=== PATIENT | female | born 1935 | race Caucasian/White ===

== ENCOUNTER 2017-05-12 07:11 | Inpatient (IN) | payer OTHER ==
[~2017-05-12] VITALS: Ht 167.6 cm; Wt 71.7 kg
--- NOTE | 2017-05-12 07:13 | NUR ---
PT [facility] BLS. TAKEN TO BED 10
--- NOTE | 2017-05-12 07:15 | NUR ---
[facility] and to r/o stroke. Facility staff states Pt had right sided facial drooping when they called 911. Upon arival to ED, Pt is alert to name only. She has Hx of dementia. neuro assessment is clear. Eyes perrla, hand new autos delivery driver strong. Symmetrical facial symmetry, bilateral equal arm strength. VSS. ER MD aware. Continue to monitor.
[2017-05-12 07:18] VITALS: BP 115/60
--- NOTE | 2017-05-12 07:19 | NUR ---
Dr. Phelps evaluating patient.
[2017-05-12 08:19] LABS: APPEARANCE,URINE HAZY (CLEAR); BILIRUBIN,URINE NEGATIVE (NEGATIVE); BLOOD, URINE TRACE-I (NEGATIVE); COLOR,URINE YELLOW (YELLOW); LEUKOCYTE ESTERASE ,URINE NEGATIVE (NEGATIVE); PH,URINE 5.5 (5.0-9.0); UGLUCOSE NEGATIVE (NEGATIVE)
[2017-05-12 08:19] LABS: BASOPHILS # (AUTO) 0.4 K/uL (0.00-0.22); BASOPHILS % (AUTO) 4.6 % (0.0-2.0); EOSINOPHILS # (AUTO) 0.1 K/uL (0-0.4); EOSINOPHILS % (AUTO) 0.7 % (0.0-4.0); HEMATOCRIT 49.2 % (36-48); HEMOGLOBIN 16.2 g/dL (12.0-16.0); LYMPHOCYTES # (AUTO) 1.4 K/uL (2.5-16.5); LYMPHOCYTES % (AUTO) 15.1 % (20.5-51.1); MEAN CORPUSCULAR HEMOGLOBIN 27 pg (27-31); MEAN CORPUSCULAR HGB CONC 33 g/dL (33-37); MEAN CORPUSCULAR VOLUME 82 fL (80-94); MONOCYTES # (AUTO) 0.5 K/uL (0.8-1.0); MONOCYTES % (AUTO) 5.6 % (1.7-9.3); NEUTROPHILS # (AUTO) 7.1 K/uL (1.8-7.7); PLATELET COUNT (AUTO) 169 K/uL (140-450); RED BLOOD CELL COUNT(AUTO) 5.98 MIL/uL (4.20-5.40); RED CELL DISTRIBUTION WIDTH 13.6 % (11.6-13.7); WHITE BLOOD COUNT (AUTO) 9.5 K/uL (4.8-10.8)
[2017-05-12 08:27] LABS: NITRITE, URINE POSITIVE (NEGATIVE); RBC,URINE NONE SEEN /HPF (0-5); WBC,URINE 0-5 (RARE) /HPF (0-5)
[2017-05-12 08:36] LABS: ALBUMIN 3.2 g/dL (3.4-5.0); ANION GAP 9.3 (8-16); ASPARTATE AMINOTRANSFERASE 51 U/L (15-37); CARBON DIOXIDE 38.7 mmol/L (21-32); CHLORIDE 82 mmol/L (98-107); CREATININE 1.1 mg/dL (0.6-1.3); GLUCOSE 158 mg/dL (74-106); SODIUM SERUM 128 mmol/L (136-145); TOTAL BILIRUBIN 0.8 mg/dL (0.0-1.0); UREA NITROGEN, BLOOD 15 mg/dL (7-18)
[2017-05-12] MEDS ORDERED: POTASSIUM CHL 10 MEQ/D5-1/2NS 1,000 ML IV ONE (08:50)
[2017-05-12] MEDS ORDERED: LACTULOSE 20 GM/30 ML UDC PO ONE (08:50)
[2017-05-12] MEDS ORDERED: POTASSIUM CHLORIDE 10 MEQ TABER PO ONE (08:50)
[2017-05-12] MEDS ORDERED: ACETAMINOPHEN 325 MG TAB PO PRN (09:20)
[2017-05-12] MEDS ORDERED: HYDROcodone/APAP 7.5/325 MG 1 TAB PO PRN (09:20)
[2017-05-12] MEDS ORDERED: ONDANSETRON 4 MG/2 ML VIAL IVP PRN (09:20)
[2017-05-12] MEDS ORDERED: POTASSIUM CHLORIDE 40 MEQ, LIDOCAINE 1% 25 MG in NACL 0.9% 250 ML IV SCH (09:45)
[2017-05-12 10:00] VITALS: BP 123/74
--- NOTE | 2017-05-12 10:00 | NUR ---
PATIENT WAS TRANSFERRED FROM ER. REPORT WAS GIVEN AT BEDSIDE. PATIENT IS AWAKE, ALERT. RESPIRATION EVEN, UNLABOR ON ROOM AIR. SKIN DRY AND WARM. IV PATENT AND INTACT. DENIED PAIN, SOB, N/V AT THIS TIME. VS WAS TAKEN, MRSA WAS SWABBED. PLAN OF CARE WAS DISCUSSED WITH PATIENT. BED AT LOW POSITION, CALL LIGHT WITHIN REACH. SIDE RAILS UP. BED ALARM IS ACTIVE
[2017-05-12] MEDS ORDERED: METO25TA14 PO (10:06)
[2017-05-12] MEDS ORDERED: ACET-1083 PO (10:06)
[2017-05-12] MEDS ORDERED: IBUP-1842 PO (10:06)
[2017-05-12] MEDS ORDERED: ZOLP10TA1 PO (10:06)
[2017-05-12] MEDS ORDERED: LACT10SO4 PO (10:06)
[2017-05-12] MEDS ORDERED: VITB12 PO (10:06)
[2017-05-12] MEDS ORDERED: DONE5TAB6 PO (10:06)
[2017-05-12] MEDS: NACL 0.9% 1,000 ML IV SCH (10:27)
[2017-05-12] MEDS ORDERED: LEVOFLOXACIN 500 MG/D5W PREMIX 100 ML IV SCH (10:30)
[2017-05-12 10:33] LABS: PROTHROMBIN TIME 11.3 secs (10.8-13.4)
[2017-05-12 10:39] LABS: CHOL/HDL RATIO 3.7 (1-4.5); FREE T4 (FREE THYROXINE) 1.35 ng/dL (0.76-1.46); MAGNESIUM 2.1 mg/dL (1.8-2.4); PHOSPHORUS 2.9 mg/dL (2.5-4.9); THYROID STIMULATING HORMONE 2.6 uIU/mL (0.34-3.74)
[2017-05-12 12:00] VITALS: BP 155/68
--- NOTE | 2017-05-12 12:40 | NUR ---
PATIENT AWAKE, ALERT, EATING LUNCH. RESPIRATION EVEN, UNLABOR ON ROOM AIR. NO DISTRESS NOTED AT THIS TIME. CALL LIGHT WITHIN REACH
[2017-05-12 13:35] LABS: ANION GAP 10.6 (8-16); CHLORIDE 84 mmol/L (98-107); GLUCOSE 172 mg/dL (74-106); SODIUM SERUM 127 mmol/L (136-145); UREA NITROGEN, BLOOD 14 mg/dL (7-18)
[2017-05-12 13:38] LABS: POTASSIUM 2.6 mmol/L (3.5-5.1)
--- NOTE | 2017-05-12 14:27 | NUR ---
PATIENT IS SLEEPING COMFORTABLY, EASILY AROUSABLE. RESPIRATION EVEN, UNLABOR ON ROOM AIR. NO DISTRESS NOTED AT THIS TIME. CALL LIGHT WITHIN REACH
[2017-05-12 15:50] VITALS: BP 125/65
--- NOTE | 2017-05-12 15:59 | NUR ---
PATIENT IS SLEEPING COMFORTABLY, EASILY AROUSABLE BY TOUCH. RESPIRATION EVEN, UNLABOR ON ROOM AIR. VS IS STABLE. NO DISTRESS NOTED AT THIS TIME. CALL LIGHT WITHIN REACH
--- NOTE | 2017-05-12 18:20 | NUR ---
PATIENT IS SLEEPING COMFORTABLY. RESPIRATION EVEN, UNLABOR ON ROOM AIR. IV PATENT AND INTACT. NO DISTRESS NOTED AT THIS TIME. CALL LIGHT WITHIN REACH
[2017-05-12] MEDS ORDERED: POTASSIUM CHLORIDE 40 MEQ, LIDOCAINE 1% 25 MG in NACL 0.9% 250 ML IV ONE (18:45)
[2017-05-12] MEDS ORDERED: POTASSIUM CHLORIDE 10 MEQ TABER PO SCH (19:00)
--- NOTE | 2017-05-12 19:27 | NUR ---
ENDORSEMENT GIVEN TO THE FACILITIES MAINTENANCE ENGINEER NURSE. PATIENT IS STABLE AT THIS TIME
--- NOTE | 2017-05-12 19:28 | NUR ---
RECIEVED REPORT FROM DAY NURSE. PT IN STABLE CONDITION. NO S/S OF DISTRESS NOTED. PT AAOX2 ON RA. IV TO R HAND 22G, PATENT AND INTACT, INFUSING WELL. SKIN IS WARM AND DRY TO TOUCH, INTACT. RR EVEN/UNLABORED. BOWEL SOUNDS PRESENT. INITIAL ASSESSMENT COMPLETED, PLAN OF CARE DISCUSSED WITH PT, REINFORCEMENT NEEDED, ALL SAFETY PRECAUTIONS MET, BOARD UPDATED,CALL LIGHT WITHIN REACH, WILL CONTINUE TO MONITOR.
[2017-05-12 20:00] VITALS: BP 114/66
[2017-05-12] MEDS: DOCUSATE SODIUM 100 MG GELCAP PO SCH (20:19)
[2017-05-12] MEDS: DONEPEZIL 10 MG TAB PO SCH (20:20)
[2017-05-13] VITALS: BP 116/68
--- NOTE | 2017-05-13 00:08 | NUR ---
SPOKE WITH PHARMACY BECAUSE THERE IS A PENDING ORDER FOR K-RIDER BUT PHARMACY NOT VERIFYING. PHARMACY STATED THEY WERE WAITING TO HERE FROM LICENSED GUIDE PHARMACIST BECAUSE ORDER IS FOR K-RIDER WITH LIDOCAINE WHICH ONLY PHARMACY CAN MIX. WILL NOTIFY DR. LUCAS
--- NOTE | 2017-05-13 00:16 | NUR ---
K-RIDER INFUSING WELL, PT TOLERATING WELL, NO S/S OF DISTRESS NOTED.WILL CONTINUE TO MONITOR.
[2017-05-13] MEDS ORDERED: KCL 20 MEQ/WATER INJ PREMIX 200 ML IV SCH (01:00)
[2017-05-13 04:00] VITALS: BP 118/68
[2017-05-13] MEDS: NACL 0.9% 1,000 ML IV SCH ×2 (05:17→17:37)
--- NOTE | 2017-05-13 06:54 | NUR ---
PATIENT HAS BEEN SCREENED AND CATEGORIZED MODERATE NUTRITION RISK. PATIENT WILL BE SEEN WITHIN 3-5 DAYS OF ADMISSION. 05/15/17-05/17/17 MICHAEL WINN MS, RDN
--- NOTE | 2017-05-13 07:10 | NUR ---
ENDORSEMENT RECEIVED FROM DIAMOND MOUNTER NURSE. PATIENT IS AWAKE, ALERT. RESPIRATION EVEN, UNLABOR ON ROOM AIR. SKIN DRY AND WARM. IV PATENT AND INTACT. DENIED PAIN, N/V AT THIS TIME. PLAN OF CARE WAS DISCUSSED WITH PATIENT. BED AT LOW POSITION, SIDE RAILS UP, FALL RISK PRECAUTION ENSURED. CALL LIGHT WITHIN REACH
--- NOTE | 2017-05-13 07:23 | NUR ---
REPORT GIVEN TO DAY SHIFT NURSE FOR CONTINUITY OF CARE, PT IN STABLE CONDITION
[2017-05-13 07:25] LABS: BASOPHILS # (AUTO) 0.2 K/uL (0.00-0.22); BASOPHILS % (AUTO) 1.9 % (0.0-2.0); EOSINOPHILS # (AUTO) 0.1 K/uL (0-0.4); EOSINOPHILS % (AUTO) 0.8 % (0.0-4.0); HEMOGLOBIN 14.2 g/dL (12.0-16.0); LYMPHOCYTES # (AUTO) 1.6 K/uL (2.5-16.5); LYMPHOCYTES % (AUTO) 16.2 % (20.5-51.1); MEAN CORPUSCULAR HEMOGLOBIN 27 pg (27-31); MEAN CORPUSCULAR HGB CONC 33 g/dL (33-37); MEAN CORPUSCULAR VOLUME 82 fL (80-94); MONOCYTES # (AUTO) 1.1 K/uL (0.8-1.0); MONOCYTES % (AUTO) 10.7 % (1.7-9.3); NEUTROPHILS % (AUTO) 70.4 % (42.2-75.2); PLATELET COUNT (AUTO) 245 K/uL (140-450); RED BLOOD CELL COUNT(AUTO) 5.24 MIL/uL (4.20-5.40); RED CELL DISTRIBUTION WIDTH 14.1 % (11.6-13.7)
[2017-05-13 07:38] LABS: ANION GAP 8.5 (8-16); CARBON DIOXIDE 32.6 mmol/L (21-32); CHLORIDE 91 mmol/L (98-107); CREATININE 0.8 mg/dL (0.6-1.3); GLUCOSE 127 mg/dL (74-106); POTASSIUM 3.1 mmol/L (3.5-5.1); SODIUM SERUM 129 mmol/L (136-145); UREA NITROGEN, BLOOD 12 mg/dL (7-18)
[2017-05-13 07:44] LABS: MAGNESIUM 2.1 mg/dL (1.8-2.4); PHOSPHORUS 2.1 mg/dL (2.5-4.9)
[2017-05-13 08:00] VITALS: BP 121/79
[2017-05-13] MEDS: LACTOBACILLUS RHAMNOSUS GG 1 EACH CAP PO SCH (08:51)
[2017-05-13] MEDS: CYANOCOBALAMIN 100 MCG TAB PO SCH (08:51)
[2017-05-13] MEDS: LACTULOSE 20 GM/30 ML UDC PO SCH (08:51)
[2017-05-13] MEDS: METOPROLOL 25 MG TAB PO SCH (08:52)
[2017-05-13] MEDS: DOCUSATE SODIUM 100 MG GELCAP PO SCH ×2 (08:52→21:18)
--- NOTE | 2017-05-13 09:53 | NUR ---
PATIENT WAS CLEANED UP AND REPOSITIONED TO RIGHT LATERAL. NO DISTRESS NOTED AT THIS TIME.
[2017-05-13] MEDS ORDERED: INSULIN LISPRO SLIDING SCALE 100 UNITS/ML VIAL SUBQ PRN (10:30)
[2017-05-13] MEDS ORDERED: DEXTROSE 50% 50 ML SYR IVP PRN (10:30)
--- NOTE | 2017-05-13 10:30 | NUR ---
PATIENT IS SLEEPING COMFORTABLY, EASILY AROUSABLE BY NAME. RESPIRATION EVEN, UNLABOR ON ROOM AIR. NO DISTRESS NOTED AT THIS TIME. MED WAS GIVEN PER ORDER
[2017-05-13] MEDS: LEVOFLOXACIN 250 MG/D5 PREMIX 50 ML IV SCH (10:32)
[2017-05-13] MEDS ORDERED: POTASSIUM CHLORIDE 10 MEQ TABER PO SCH (11:00)
[2017-05-13] MEDS ORDERED: POTASSIUM CHLORIDE 40 MEQ, LIDOCAINE 1% 25 MG in NACL 0.9% 250 ML IV SCH (11:00)
[2017-05-13] MEDS: BLOOD GLUCOSE MONITORING 1 DEV DEV FS SCH ×3 (11:17→21:22)
--- NOTE | 2017-05-13 11:42 | NUR ---
PATIENT IS SLEEPING COMFORTABLY. RESPIRATION EVEN, UNLABOR ON ROOM AIR. NO DISTRESS NOTED AT THIS TIME. US TECH IS AT BEDSIDE. MED WAS GIVEN PER ORDER.
[2017-05-13 12:00] VITALS: BP 105/56
--- NOTE | 2017-05-13 15:27 | NUR ---
PATIENT IS SLEEPING COMFORTABLY. RESPIRATION EVEN, UNLABOR ON ROOM AIR. NO DISTRESS NOTED AT THIS TIME. CALL LIGHT WITHIN REACH
[2017-05-13 16:00] VITALS: BP 123/64
[2017-05-13 16:48] LABS: ANION GAP 8.5 (8-16); CARBON DIOXIDE 33.5 mmol/L (21-32); CHLORIDE 92 mmol/L (98-107); CREATININE 0.8 mg/dL (0.6-1.3); GLUCOSE 109 mg/dL (74-106); SODIUM SERUM 130 mmol/L (136-145); UREA NITROGEN, BLOOD 11 mg/dL (7-18)
--- NOTE | 2017-05-13 18:13 | NUR ---
PATIENT IS AWAKE, ALERT, EATING DINNER. RESPIRATION EVEN, UNLABOR. TUBE FORMER OPERATOR WAS REMOVED. NO DISTRESS NOTED AT THIS TIME. IV PATENT AND INTACT. CALL LIGHT WITHIN REACH
--- NOTE | 2017-05-13 19:07 | NUR ---
ENDORSEMENT GIVEN TO THE PHOTOGRAMMETRY AIRPLANE PILOT NURSE. PATIENT IS STABLE AT THIS TIME
[2017-05-13] MEDS: DONEPEZIL 10 MG TAB PO SCH (21:18)
[2017-05-13] MEDS ORDERED: CHLORHEXADINE GLUC 2% CLOTH TP SCH (22:25)
[2017-05-13] MEDS ORDERED: MUPIROCIN 2% OINT 22 GM TUBE TP SCH (22:25)
[2017-05-14] VITALS: BP 126/68
[2017-05-14] MEDS: NACL 0.9% 1,000 ML IV SCH ×3 (00:05→11:51)
[2017-05-14 06:33] LABS: BASOPHILS # (AUTO) 0.1 K/uL (0.00-0.22); EOSINOPHILS # (AUTO) 0.1 K/uL (0-0.4); EOSINOPHILS % (AUTO) 0.7 % (0.0-4.0); HEMATOCRIT 39.6 % (36-48); HEMOGLOBIN 13.6 g/dL (12.0-16.0); LYMPHOCYTES # (AUTO) 2.1 K/uL (2.5-16.5); LYMPHOCYTES % (AUTO) 28.3 % (20.5-51.1); MEAN CORPUSCULAR HEMOGLOBIN 28 pg (27-31); MEAN CORPUSCULAR HGB CONC 34 g/dL (33-37); MEAN CORPUSCULAR VOLUME 82 fL (80-94); MONOCYTES % (AUTO) 14.2 % (1.7-9.3); NEUTROPHILS % (AUTO) 54.8 % (42.2-75.2); PLATELET COUNT (AUTO) 207 K/uL (140-450); RED BLOOD CELL COUNT(AUTO) 4.86 MIL/uL (4.20-5.40); RED CELL DISTRIBUTION WIDTH 14.1 % (11.6-13.7); WHITE BLOOD COUNT (AUTO) 7.3 K/uL (4.8-10.8)
[2017-05-14 06:38] LABS: ANION GAP 10.4 (8-16); CARBON DIOXIDE 29.2 mmol/L (21-32); CHLORIDE 96 mmol/L (98-107); CREATININE 0.8 mg/dL (0.6-1.3); GLUCOSE 104 mg/dL (74-106); POTASSIUM 3.6 mmol/L (3.5-5.1); SODIUM SERUM 132 mmol/L (136-145); UREA NITROGEN, BLOOD 9 mg/dL (7-18)
[2017-05-14] MEDS: BLOOD GLUCOSE MONITORING 1 DEV DEV FS SCH ×4 (06:38→20:56)
[2017-05-14 06:44] LABS: MAGNESIUM 1.9 mg/dL (1.8-2.4); PHOSPHORUS 2.2 mg/dL (2.5-4.9)
--- NOTE | 2017-05-14 07:22 | NUR ---
BEDSIDE REPORT GIVEN TO DAYSHIFT NURSE FOR CONTINUITY OF CARE, PT IN STABLE CONDITION. NO S/S OF DISTRESS NOTED.
--- NOTE | 2017-05-14 07:27 | NUR ---
REPORT RECEIVED FROM COMMERCIAL TRUCK DRIVER NURSE, BORIS, PT SLEEPING QUIETLY IN NAD, RESP EVEN UNLABORED, SKIN WARM DRY COLOR WNL, DENIES PAIN OR DISCOMFORT, AROUSES EASILY, , PLAN OF CARE REVIEWED, NO IMMEDIATE NEEDS IDENTIFIED, ALL SAFETY MEASURES IN PLACE, WILL CONTINUE TO MONITOR.
[2017-05-14 08:00] VITALS: BP 104/56
[2017-05-14] MEDS: LACTULOSE 20 GM/30 ML UDC PO SCH (08:20)
[2017-05-14] MEDS: DOCUSATE SODIUM 100 MG GELCAP PO SCH ×2 (08:21→20:56)
[2017-05-14] MEDS: METOPROLOL 25 MG TAB PO SCH (08:21)
[2017-05-14] MEDS: LACTOBACILLUS RHAMNOSUS GG 1 EACH CAP PO SCH (08:21)
[2017-05-14] MEDS: CYANOCOBALAMIN 100 MCG TAB PO SCH (08:26)
--- NOTE | 2017-05-14 08:30 | NUR ---
PT KARLA SCHEDULED MEDS, PT SITTING UP EATING BREAKFAST IN NAD.
[2017-05-14] MEDS: CHLORHEXADINE GLUC 2% CLOTH TP SCH (08:41)
[2017-05-14] MEDS: MUPIROCIN 2% OINT 22 GM TUBE TP SCH (08:41)
--- NOTE | 2017-05-14 10:28 | NUR ---
PHYSICAL THERAPY AT BEDSIDE
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
--- NOTE | 2017-05-14 11:35 | NUR ---
BEDSIDE GLUCOSE 126, NO INSULIN NEEDED PER SLIDING SCALE.
[2017-05-14] MEDS: LEVOFLOXACIN 250 MG/D5 PREMIX 50 ML IV SCH (11:50)
--- NOTE | 2017-05-14 13:51 | NUR ---
CLOTHING EXAMINER FROM [facility] AT BEDSIDE VISITING, WANTS TO SPEAK WITH TUTU WHITE CALLED TO BEDSIDE TO DISCUSS DISCHARGE PLAN.
--- NOTE | 2017-05-14 14:29 | NUR ---
ELIS FROM [facility] CALLED TO LET US KNOW THAT [place] [facility] READY TO TRANSFER TO SNF, ELIS STATES SHE DISCUSSED THE PLAN WITH BUNNY, DIRECTOR OF [facility] BO[facility] AND CARE WHERE PT CAME FROM. PHONE NUMBER FOR ELIS [phone], BUNNY [phone].
--- NOTE | 2017-05-14 14:36 | NUR ---
CM NOTE REVIEW DONE
--- NOTE | 2017-05-14 15:09 | NUR ---
NOTE PATIENT INFORMATION FAXED TO [facility] / FAX# [phone] Addendum: 05/14/17 at 1554 by Jan Smith RN PLACED ON WILL-CALL W/ [facility].
--- NOTE | 2017-05-14 15:31 | NUR ---
1430 MET WITH BROOKS FROM [facility] AND DISCUSSED DISCHARGE PLAN. 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 ASKED IF PT WAS ELIGIBLE FOR RETURN AND SHE STATED THAT SHE WOULD NEED TO ASK HER . INQUIRED IF IT WAS DUE TO PT MAYBE HAVING INCREASED CARE NEEDS AND SHE STATED THAT SHE WANTED ME TO SPEAK TO HER . SPOKE WITH BUNNY ON PHONE AND HE INDICATED THAT PT IS NOT PAYING THEIR EXPECTATIONS OF $2300 PER MONTH AND PAYS "NOT QUITE $2000" ASKED IF PT HAD ANY RELATIVES AND HE STATED THAT PT DOES HAVE A BROTHER IN [place]. ASKED HOW PT PAYS FOR [facility] AND HE STATED THAT THERE IS A BANK ACCOUNT SET UP AND HE GETS AN AUTOMATIC PAYMENT. INFORMED HIM THAT HE NEEDS TO LET CM KNOW WHETHER HE IS GOING TO TAKE PT BACK THE PLAN IS FOR PT TO GO TO SNF FOR PT THEN HOME AND THE SNF WILL NEED TO KNOW WHAT THE DISCHARGE PLAN IS. PER BUNNY THE PT HAS BEEN [place] [facility] [place]FORE AND THEY WOULD PREFER THAT SINCE IT IS CLOSE. PER BUNNY HE WILL ACCEPT THE PT BACK WHEN DISCHARGED AND IN THE MEAN TIME WILL DISCUSS THE FINANCES WITH THE FAMILY.
[2017-05-14 15:59] VITALS: BP 118/75
--- NOTE | 2017-05-14 16:14 | NUR ---
PT RESTING QUIETLY IN NAD, RESP EVEN UNLABORED, SKIN WARM DRY COLOR WNL, VITALS STABLE, DENIES ANY IMMEDIATE NEEDS, BED LOCKED IN LOW POSITION, SIDE RAILS UP, CALL KIRBY WITHIN REACH, IV INFUSING WELL, SITE WNL, WILL CONTINUE TO MONITOR.
--- NOTE | 2017-05-14 16:41 | NUR ---
BEDSIDE GLUCOSE 92, NO INSULIN NEEDED PER SLIDING SCALE.
--- NOTE | 2017-05-14 18:07 | NUR ---
PT ASSISTED TO SITTING POSITION, EATING DINNER NOW, RESP EVEN UNLABORED, SKIN WARM DRY COLOR WNL, WILL CONTINUE TO MONITOR.
--- NOTE | 2017-05-14 19:13 | NUR ---
REPORT GIVEN TO BOX OFFICE MANAGER NURSE, PT IN STABLE CONDITION.
--- NOTE | 2017-05-14 19:14 | NUR ---
RECEIVED REPORT FROM DAY SHIFT RN, PT IS A/CONSTANZA2, ON ROOM AIR. 22G IV ACCESS TO RIGHT HAND INFUSING NS@100ML/HR. PT USES BEDSIDE COMMODE WITH ASSISTANCE, PT SKIN IS INTACT. UPDATED BOARD. DISCUSSED PLAN OF CARE WITH PT. VITAL SIGNS WITHIN NORMAL LIMITS. PT IN STABLE CONDITION, NO SIGNS OF DISTRESS NOTED. BED IN LOWEST POSITION, CALL LIGHT WITHIN REACH. WILL CONTINUE TO MONITOR.
[2017-05-14] MEDS: DONEPEZIL 10 MG TAB PO SCH (20:56)
--- NOTE | 2017-05-14 21:00 | NUR ---
PT BLOOD SUGAR 97, NO INSULIN COVERAGE NEEDED. ADMINISTERED SCHEDULED MEDICATIONS, PT TOLERATED WELL. NO PROBLEMS SWALLOWING. PT IN STABLE CONDITION, NO SIGNS OF DISTRESS NOTED. BED IN LOWEST POSITION, CALL LIGHT WITHIN REACH. WILL CONTINUE TO MONITOR.
[2017-05-15] VITALS: BP 125/56
--- NOTE | 2017-05-15 | NUR ---
VITAL SIGNS WITHIN NORMAL LIMITS. PT IN STABLE CONDITION, NO SIGNS OF DISTRESS NOTED. BED IN LOWEST POSITION, CALL LIGHT WITHIN REACH. WILL CONTINUE TO MONITOR.
--- NOTE | 2017-05-15 02:51 | NUR ---
PT IN STABLE CONDITION, NO SIGNS OF DISTRESS NOTED. BED IN LOWEST POSITION, CALL LIGHT WITHIN REACH. WILL CONTINUE TO MONITOR.
--- NOTE | 2017-05-15 05:23 | NUR ---
PT IN STABLE CONDITION, NO SIGNS OF DISTRESS NOTED. BED IN LOWEST POSITION, CALL LIGHT WITHIN REACH. WILL CONTINUE TO MONITOR.
[2017-05-15] MEDS: BLOOD GLUCOSE MONITORING 1 DEV DEV FS SCH ×2 (06:42→12:13)
--- NOTE | 2017-05-15 07:10 | NUR ---
ENDORSED PT IN STABLE CONDITION TO DAY SHIFT NURSE FOR CONTINUITY OF CARE.
--- NOTE | 2017-05-15 07:11 | NUR ---
RECEIVED REPORT FROM FINANCIAL ASSISTANCE ADVISOR NURSE. PATIENT IS AAOX2, RESPIRATORY EFFORT EVEN AND UNLABORED. NO SIGNS AND SYMPTOMS OF ACUTE DISTRESS NOTED AT THIS TIME. HAS IV TO THE RIGHT HAND 22G, INFUSING NS AT 100ML/HR. SITE IS CLEAN, DRY, PATENT AND INTACT. DISCUSSED PLAN OF CARE WITH PATIENT AND SHE VERBALIZED UNDERSTANDING. BED IS IN LOWEST POSITION, SIDE RAILS UP X2, CALL LIGHT PLACED WITHIN REACH. WILL CONTINUE TO MONITOR.
[2017-05-15 07:15] LABS: ANION GAP 11.7 (8-16); CARBON DIOXIDE 26.9 mmol/L (21-32); CHLORIDE 99 mmol/L (98-107); CREATININE 0.8 mg/dL (0.6-1.3); GLUCOSE 104 mg/dL (74-106); POTASSIUM 3.6 mmol/L (3.5-5.1); SODIUM SERUM 134 mmol/L (136-145); UREA NITROGEN, BLOOD 7 mg/dL (7-18)
[2017-05-15 08:00] VITALS: BP 114/82
[2017-05-15] MEDS ORDERED: MEMANTINE 10 MG TAB PO SCH (09:00)
[2017-05-15] MEDS: LACTULOSE 20 GM/30 ML UDC PO SCH (09:35)
[2017-05-15] MEDS: DOCUSATE SODIUM 100 MG GELCAP PO SCH (09:35)
[2017-05-15] MEDS: LACTOBACILLUS RHAMNOSUS GG 1 EACH CAP PO SCH (09:36)
[2017-05-15] MEDS: CYANOCOBALAMIN 100 MCG TAB PO SCH (09:36)
[2017-05-15] MEDS: METOPROLOL 25 MG TAB PO SCH (09:36)
[2017-05-15] MEDS: MUPIROCIN 2% OINT 22 GM TUBE TP SCH (09:37)
[2017-05-15] MEDS: CHLORHEXADINE GLUC 2% CLOTH TP SCH (09:37)
[2017-05-15] MEDS: NACL 0.9% 1,000 ML IV SCH (09:40)
[2017-05-15] MEDS: LEVOFLOXACIN 250 MG/D5 PREMIX 50 ML IV SCH (11:00)
--- NOTE | 2017-05-15 12:35 | NUR ---
CALLED [facility]. [phone]. [facility] WILL BE AT 5:30P.[place] RN AWARE
[2017-05-15] MEDS ORDERED: METO50TE2 PO (12:54)
[2017-05-15] MEDS ORDERED: LEVO750T2 PO (12:57)
[2017-05-15] MEDS ORDERED: INUL1CTB PO (12:57)
--- NOTE | 2017-05-15 16:13 | NUR ---
LATE ENTRY. PER SIERRA AT [facility], PATIENT CAN GO RO ROOM 29A. UNDER DR. Sandra HERNANDEZ. MADINA MEAT SERVICE TEAM MEMBER NURSE AWARE.
--- NOTE | 2017-05-15 16:15 | NUR ---
LATE ENTRY. [facility] AWARE OF TRANSFER TO [facility] ROOM [address]A UNDER DR. Reva HERNANDEZ AND OF PICKUP TIME BY AT 5:30P.M.
--- NOTE | 2017-05-15 18:20 | NUR ---
DISCHARGE ORDERS ARE IN PLACE. PATIENT TO BE TRANSFERRED TO [facility] BED [facility]. FAMILY MADE AWARE ALREADY. TRANSPORTATION HERE FOR PATIENT. REMINDED PATIENT THAT SHE GOING TO ANOTHER FACILITY. IV HAS BEEN REMOVED EARLIER DUE TO INFILTRATION. PATIENT CHANGED INTO HER OWN GOWN. NO SIGNS AND SYMPTOMS OF ACUTE DISTRESS NOTED AT THIS TIME.
== END 2017-05-15 18:20 | DRG 682 ==
LOC: MED 07:11 → MTU 09:20
PROVIDERS: ADMIT Student in an Organized Health Care Education/Training Program; ATTEND Student in an Organized Health Care Education/Training Program
DX: N17.0 Acute kidney failure with tubular necrosis (principal); G93.41 Metabolic encephalopathy; E44.0 Moderate protein-calorie malnutrition; E87.8 Other disorders of electrolyte and fluid balance, not elsewhere classified; N39.0 Urinary tract infection, site not specified; E87.1 Hypo-osmolality and hyponatremia; E87.6 Hypokalemia; I10 Essential (primary) hypertension; E78.5 Hyperlipidemia, unspecified; K74.60 Unspecified cirrhosis of liver; K72.90 Hepatic failure, unspecified without coma; E66.9 Obesity, unspecified; F02.80 Dementia in other diseases classified elsewhere, unspecified severity, without behavioral disturbance, psychotic disturbance, mood disturbance, and anxiety; I25.10 Atherosclerotic heart disease of native coronary artery without angina pectoris; M85.80 Other specified disorders of bone density and structure, unspecified site; Z66 Do not resuscitate; K21.9 Gastro-esophageal reflux disease without esophagitis; M81.0 Age-related osteoporosis without current pathological fracture; G30.9 Alzheimer's disease, unspecified; Z68.25 Body mass index [BMI] 25.0-25.9, adult
CPT/HCPCS: 36415; 70450; 71045; 80048; 80053; 81001; 82140; 82150; 82948; 83036; 83690; 83735; 83880; 84100; 84439; 84443; 84484; 85025; 85610; 85730; 87081; 87086; 93005; 93925; 93970; 97110; 97140; 99285; J1815; J1956; J2001; J3480; J7030; Q0092